=== PATIENT | male | born 1995 | race Caucasian/White ===

== ENCOUNTER → 2019-04-13 | Outpatient (CLI) | payer OTHER ==
--- NOTE | 2019-04-13 15:55 | RAD ---
EXAM: Left foot, 3 views; left ankle, 3 views. HISTORY: Tripping injury. COMPARISON: None. FINDINGS: 3 views of the left foot and ankle are obtained. There is no fracture, dislocation or subluxation. The ankle mortise is intact. No osteochondral lesion is seen. IMPRESSION: No acute osseous finding. Electronically signed by: Katharine Stafford MD (04/13/2019 3:52 PM) [facility]
--- NOTE | 2019-04-13 15:55 | RAD ---
EXAM: Left foot, 3 views; left ankle, 3 views. HISTORY: Tripping injury. COMPARISON: None. FINDINGS: 3 views of the left foot and ankle are obtained. There is no fracture, dislocation or subluxation. The ankle mortise is intact. No osteochondral lesion is seen. IMPRESSION: No acute osseous finding. Electronically signed by: Katharine Stafford MD (04/13/2019 3:52 PM) [facility]
== END | disposition home or self-care (01) ==
LOC: DXRAD 15:27
PROVIDERS: ATTEND General Practice
DX: M79.672 Pain in left foot (principal); M25.572 Pain in left ankle and joints of left foot
CPT/HCPCS: 73610; 73630